=== PATIENT | female | born 1955 | race Native Hawaiian/Other Pacific Islander ===

== ENCOUNTER 2020-04-18 17:50 | Outpatient (CLI) | payer OTHER ==
[2020-04-18 19:16] LABS: PLATELET COUNT 229 K/uL (152-353)
[2020-04-18 19:50] LABS: POTASSIUM 4.5 mmol/L (3.6-5.2)
== END 2020-04-18 20:15 | disposition home or self-care (01) ==
LOC: LAB 17:50
PROVIDERS: Nurse Practitioner Family
DX: E55.9 Vitamin D deficiency, unspecified (principal); E53.8 Deficiency of other specified B group vitamins; R53.83 Other fatigue; Z79.899 Other long term (current) drug therapy; E11.9 Type 2 diabetes mellitus without complications; I10 Essential (primary) hypertension; E78.49 Other hyperlipidemia
CPT/HCPCS: 80053; 80061; 82306; 82607; 83036; 84439; 84443; 85027

== ENCOUNTER 2020-10-10 17:28 | Outpatient (CLI) | payer OTHER ==
[2020-10-10 19:13] LABS: PLATELET COUNT 214 K/uL (152-353)
[2020-10-10 19:32] LABS: POTASSIUM 4.7 mmol/L (3.6-5.2)
== END 2020-10-10 20:42 | disposition home or self-care (01) ==
LOC: LAB 17:28
PROVIDERS: ATTEND Nurse Practitioner Family
DX: Z00.00 Encounter for general adult medical examination without abnormal findings (principal); I10 Essential (primary) hypertension; E78.49 Other hyperlipidemia; E11.9 Type 2 diabetes mellitus without complications; E55.9 Vitamin D deficiency, unspecified; E53.9 Vitamin B deficiency, unspecified; Z79.899 Other long term (current) drug therapy; R53.83 Other fatigue; R53.81 Other malaise
CPT/HCPCS: 80053; 80061; 82306; 82607; 83036; 84439; 85027